=== PATIENT | male | born 1970 | race Caucasian/White ===

== ENCOUNTER 2017-10-10 03:54 | Emergency (ER) | payer SELFPAY ==
[~2017-10-10] VITALS: Ht 185.4 cm; Wt 65.0 kg
[~2017-10-10 03:54] MED LIST: ZOFR4TAB3 SL
[2017-10-10 04:07] VITALS: BP 124/91; PULSE 93; RESP 20; TEMP 97.6; O2SAT 100
--- NOTE | 2017-10-10 04:18 | PD ---
HPI Chief Complaint: Alcohol/Drug Intoxication Time Seen by Provider: 04:10 Travel History International Travel<30 days: No Contact w/Intl Traveler<30days: No Traveled to known affect area: No History of Present Illness HPI 46-year-old male with history of alcoholism, went to [facility] this morning telling them that he was sleeping in the [facility] and was trying to find a place to stay, however they have no beds, so [facility] was called and the patient was transported here. The patient drinks beer daily and states that his last beverage was about 4 hours prior at around midnight. He denies illicit drug use. His only complaint is that he feels as though he is going to have a seizure because of withdrawals. [facility] Past Medical History Cardiovascular Problems: Yes (Orthostatic vitals) Diminished Hearing: No Hypertension: Yes (Orthostatic vitals ) Seizures: Yes ("when I withdraw from alcohol") Past Surgical History Eye Surgery: Yes (right cataract) Social History Alcohol Use: Yes (12 beers daily; last beer @midnight ) Tobacco Use: Yes (1 PPD) Substance Use: No (denies) Allergies-Medications (Allergen,Severity, Reaction): Coded Allergies: meperidine (Verified Allergy, Severe, VOMITING, 10/10/17) Reported Meds & Prescriptions Reported Meds & Active Scripts Active No Active Prescriptions or Reported Medications Review of Systems Except as stated in HPI: all other systems reviewed are Neg Physical Exam Narrative GENERAL: Well-developed, well-nourished, no apparent distress. SKIN: Focused skin assessment warm/dry. HEAD: Atraumatic. Normocephalic. EYES: Pupils equal and round. No scleral icterus. No injection or drainage. ENT: Mucous membranes pink and moist. NECK: Trachea midline. No JVD. CARDIOVASCULAR: Regular rate and rhythm. No murmur appreciated. RESPIRATORY: No accessory muscle use. Clear to auscultation. Breath sounds equal bilaterally. GASTROINTESTINAL: Abdomen soft, non-tender, nondistended. MUSCULOSKELETAL: No obvious deformities. No clubbing. No cyanosis. No edema. NEUROLOGICAL: Awake and alert. No obvious cranial nerve deficits. Motor grossly within normal limits. Normal speech. PSYCHIATRIC: Appropriate mood and affect; insight and judgment normal. Data Data Last Documented VS Vital Signs Date Time Temp Pulse Resp B/P (MAP) Pulse Ox O2 Delivery O2 Flow Rate FiO2 10/10/17 04:07 97.6 93 20 124/91 (102) 100 Room Air Orders Orders Complete Blood Count With Diff (10/10/17 04:34) Comprehensive Metabolic Panel (10/10/17 04:34) Iv Access Insert/Monitor (10/10/17 04:34) Ecg Monitoring (10/10/17 04:34) Oximetry (10/10/17 04:34) Sodium Chlor 0.9% 1000 Ml Inj (Ns 1000 M (10/10/17 04:34) Sodium Chloride 0.9% Flush (Ns Flush) (10/10/17 04:45) Alcohol (Ethanol) (10/10/17 04:34) Labs Laboratory Tests Test 10/10/17 04:15 White Blood Count 6.0 TH/MM3 Red Blood Count 4.34 MIL/MM3 Hemoglobin 14.6 GM/DL Hematocrit 42.5 % Mean Corpuscular Volume 97.8 FL Mean Corpuscular Hemoglobin 33.6 PG Mean Corpuscular Hemoglobin Concent 34.4 % Red Cell Distribution Width 15.0 % Platelet Count 204 TH/MM3 Mean Platelet Volume 7.4 FL Neutrophils (%) (Auto) 57.6 % Lymphocytes (%) (Auto) 28.3 % Monocytes (%) (Auto) 12.7 % Eosinophils (%) (Auto) 0.8 % Basophils (%) (Auto) 0.6 % Neutrophils # (Auto) 3.4 TH/MM3 Lymphocytes # (Auto) 1.7 TH/MM3 Monocytes # (Auto) 0.8 TH/MM3 Eosinophils # (Auto) 0.0 TH/MM3 Basophils # (Auto) 0.0 TH/MM3 CBC Comment DIFF FINAL Differential Comment Blood Urea Nitrogen 5 MG/DL Creatinine 0.60 MG/DL Random Glucose 85 MG/DL Total Protein 7.4 GM/DL Albumin 3.5 GM/DL Calcium Level 8.6 MG/DL Alkaline Phosphatase 74 U/L Aspartate Amino Transf (AST/SGOT) 58 U/L Alanine Aminotransferase (ALT/SGPT) 28 U/L Total Bilirubin 0.4 MG/DL Sodium Level 137 MEQ/L Potassium Level 4.2 MEQ/L Chloride Level 102 MEQ/L Carbon Dioxide Level 27.6 MEQ/L Anion Gap 7 MEQ/L Estimat Glomerular Filtration Rate 145 ML/MIN Ethyl Alcohol Level 226 MG/DL [facility] Medical Decision Making Medical Screen Exam Complete: Yes Emergency Medical Condition: Yes Medical Record Reviewed: Yes Differential Diagnosis Alcohol intoxication, drug intoxication, metabolic abnormality, alcohol withdrawal Narrative Course Vital signs reviewed and are within normal limits. CBC is unremarkable. CMP is unremarkable. Alcohol level is 226. The patient will be allowed to sleep off his intoxication in the emergency department and discharged when clinically sober. Diagnosis Primary Impression: Alcohol intoxication Qualified Codes: F10.920 - Alcohol use, unspecified with intoxication, uncomplicated Referrals: [facility] Additional Instructions: Follow-up with [facility] Scripts No Active Prescriptions or Reported Meds Disposition: 01 DISCHARGE HOME Condition: Stable Mitchell Oconnor MD Oct 10, 2017 04:18
[2017-10-10] MEDS ORDERED: SODIUM CHLOR 0.9% 1000 ML INJ 1,000 ML IV SCH (04:34)
[2017-10-10] MEDS ORDERED: SODIUM CHLORIDE 0.9% FLUSH 10 ML FLUSH IV FLUSH PRN (04:45)
[2017-10-10 04:53] LABS: AUTOMATED NEUTROPHIL # 3.4 TH/MM3 (1.8-7.7); BASOPHIL % 0.6 % (0.0-2.0); EOSINOPHIL % 0.8 % (0.0-4.0); HEMATOCRIT 42.5 % (39.0-51.0); HEMOGLOBIN 14.6 GM/DL (13.0-17.0); LYMPH % 28.3 % (9.0-44.0); LYMPHOCYTE # 1.7 TH/MM3 (1.0-4.8); MEAN CELL VOLUME 97.8 FL (80.0-100.0); MEAN CORPUSCULAR HEMOGLOBIN 33.6 PG (27.0-34.0); MEAN CORPUSCULAR HGB CONC 34.4 % (32.0-36.0); MEAN PLATELET VOLUME 7.4 FL (7.0-11.0); MONO % 12.7 % (0.0-8.0); MONOCYTE # 0.8 TH/MM3 (0-0.9); NEUT % 57.6 % (16.0-70.0); PLATELET COUNT 204 TH/MM3 (150-450); RED BLOOD COUNT 4.34 MIL/MM3 (4.50-5.90)
[2017-10-10 05:14] LABS: ALBUMIN 3.5 GM/DL (3.4-5.0); ALT (GPT) 28 U/L (12-78); AST (GOT) 58 U/L (15-37); BICARBONATE 27.6 MEQ/L (21.0-32.0); BLOOD UREA NITROGEN 5 MG/DL (7-18); CALCIUM 8.6 MG/DL (8.5-10.1); CHLORIDE 102 MEQ/L (98-107); GLOMERULAR FILTRATION RATE 145 ML/MIN (>89); GLUCOSE,RANDOM 85 MG/DL (74-106); SODIUM (NA) 137 MEQ/L (136-145)
[2017-10-10 05:16] LABS: ALKALINE PHOSPHATASE 74 U/L (45-117); TOTAL BILIRUBIN ADULT 0.4 MG/DL (0.2-1.0); TOTAL PROTEIN 7.4 GM/DL (6.4-8.2)
== END 2017-10-10 10:24 | disposition home or self-care (01) ==
LOC: NEPC 03:54
DX: F10.229 Alcohol dependence with intoxication, unspecified (principal); F17.200 Nicotine dependence, unspecified, uncomplicated; Y90.7 Blood alcohol level of 200-239 mg/100 ml
CPT/HCPCS: 80053; 80307; 85025; 96360; 96361; 99284; J7030

== ENCOUNTER 2017-11-08 20:44 | Observation (INO) | payer SELFPAY ==
[~2017-11-08] VITALS: Ht 175.3 cm; Wt 59.0 kg
[2017-11-08 20:51] VITALS: BP 135/87; PULSE 101; RESP 18; TEMP 98.6; O2SAT 97
[2017-11-08] MEDS ORDERED: SODIUM CHLOR 0.9% 1000 ML INJ 1,000 ML IV SCH (20:55)
[2017-11-08] MEDS ORDERED: SODIUM CHLORIDE 0.9% FLUSH 10 ML FLUSH IVF PRN (21:00)
[2017-11-08] MEDS ORDERED: MORPHINE SULFATE 4 MG/ML INJ IV PUSH ONE (21:00)
[2017-11-08] MEDS ORDERED: PANTOPRAZOLE SODIUM 40 MG VIAL IVP ONE (21:00)
[2017-11-08] MEDS ORDERED: ONDANSETRON HCL 4 MG/2 ML VIAL IVP ONE (21:00)
--- NOTE | 2017-11-08 21:44 | PD ---
HPI Chief Complaint: Chest Pain Time Seen by Provider: 20:51 Travel History International Travel<30 days: No Contact w/Intl Traveler<30days: No Traveled to known affect area: No History of Present Illness HPI Patient is a 46-year-old male presenting to the emergency room for evaluation of chest pain. Patient states his pain is midsternal radiates to the left upper quadrant of his abdomen. Patient states the pain started several months ago, it is constant in nature. He reports his pain is a 10 out of 10. He reports nausea, occasional vomiting and diarrhea. He states he has 2-3 soft stools daily. He states he feels sweaty when the pain gets worse. He reports that he drinks a significant amount of alcohol on daily basis, greater than a 12 pack of beer. He denies any illicit drug use but endorses tobacco use. Symptom onset was gradual, symptoms are moderate in nature. There are no alleviating factors. PFSH Past Medical History Cardiovascular Problems: Yes GERD: Yes Hypertension: Yes (Orthostatic vitals ) Immunizations Current: Yes Seizures: Yes ("when I withdraw from alcohol") Tetanus Vaccination: < 5 Years Influenza Vaccination: No Past Surgical History Eye Surgery: Yes (right cataract) Social History Alcohol Use: Yes (12 beers daily) Tobacco Use: Yes (1 PPD) Substance Use: No (denies) Allergies-Medications (Allergen,Severity, Reaction): Coded Allergies: meperidine (Verified Allergy, Severe, VOMITING, 11/08/17) Reported Meds & Prescriptions Reported Meds & Active Scripts Active No Active Prescriptions or Reported Medications Review of Systems Except as stated in HPI: all other systems reviewed are Neg General / Constitutional: No: Fever Eyes: No: Blurred Vision HENT: No: Headaches Cardiovascular: Positive: Chest Pain or Discomfort, Diaphoresis Gastrointestinal: Positive: Nausea, Vomiting, Diarrhea, Abdominal Pain Physical Exam Narrative GENERAL: Well-developed, well-nourished, alert male. Presenting in no acute distress. SKIN: Warm and dry. HEAD: Atraumatic. Normocephalic. EYES: Pupils equal and round. No scleral icterus. No injection or drainage. ENT: No nasal bleeding or discharge. Mucous membranes pink and moist. NECK: Trachea midline. No JVD. CARDIOVASCULAR: Regular rate and rhythm. RESPIRATORY: No accessory muscle use. Clear to auscultation. Breath sounds equal bilaterally. GASTROINTESTINAL: Abdomen soft, tender to palpation in left upper quadrant epigastric region, nondistended. Hepatic and splenic margins not palpable. Positive bowel sounds, positive guarding, no rebound. MUSCULOSKELETAL: Extremities without clubbing, cyanosis, or edema. No obvious deformities. NEUROLOGICAL: Awake and alert. No obvious cranial nerve deficits. Motor grossly within normal limits. Five out of 5 muscle strength in the arms and legs. Normal speech. PSYCHIATRIC: Appropriate mood and affect; insight and judgment normal. Data Data Last Documented VS Vital Signs Date Time Temp Pulse Resp B/P (MAP) Pulse Ox O2 Delivery O2 Flow Rate FiO2 11/08/17 22:32 16 11/08/17 20:51 98.6 101 135/87 (103) 97 Orders Orders Electrocardiogram (11/08/17 20:55) Ckmb (Isoenzyme) Profile (11/08/17 20:55) Complete Blood Count With Diff (11/08/17 20:55) Comprehensive Metabolic Panel (11/08/17 20:55) Magnesium (Mg) (11/08/17 20:55) Prothrombin Time / Inr (Pt) (11/08/17 20:55) Act Partial Throm Time (Ptt) (11/08/17 20:55) Troponin I (11/08/17 20:55) Lipase (11/08/17 20:55) Chest, Single Ap (11/08/17 20:55) Ecg Monitoring (11/08/17 20:55) Bilateral Bp Monitoring (11/08/17 20:55) Iv Access Insert/Monitor (11/08/17 20:55) Oximetry (11/08/17 20:55) Oxygen Administration (11/08/17 20:55) Sodium Chloride 0.9% Flush (Ns Flush) (11/08/17 21:00) Morphine Inj (Morphine Inj) (11/08/17 21:00) Ondansetron Inj (Zofran Inj) (11/08/17 21:00) Pantoprazole Inj (Protonix Inj) (11/08/17 21:00) Sodium Chlor 0.9% 1000 Ml Inj (Ns 1000 M (11/08/17 20:55) CKMB (11/08/17 21:10) CKMB% (11/08/17 21:10) Admit Order (Ed Use Only) (11/08/17 23:26) Labs Laboratory Tests Test 11/08/17 21:10 White Blood Count 5.7 TH/MM3 Red Blood Count 4.07 MIL/MM3 Hemoglobin 13.6 GM/DL Hematocrit 39.9 % Mean Corpuscular Volume 98.2 FL Mean Corpuscular Hemoglobin 33.5 PG Mean Corpuscular Hemoglobin Concent 34.1 % Red Cell Distribution Width 14.4 % Platelet Count 163 TH/MM3 Mean Platelet Volume 7.2 FL Neutrophils (%) (Auto) 55.4 % Lymphocytes (%) (Auto) 36.0 % Monocytes (%) (Auto) 7.5 % Eosinophils (%) (Auto) 0.5 % Basophils (%) (Auto) 0.6 % Neutrophils # (Auto) 3.2 TH/MM3 Lymphocytes # (Auto) 2.1 TH/MM3 Monocytes # (Auto) 0.4 TH/MM3 Eosinophils # (Auto) 0.0 TH/MM3 Basophils # (Auto) 0.0 TH/MM3 CBC Comment DIFF FINAL Differential Comment Prothrombin Time 10.2 SEC Prothromb Time International Ratio 1.0 RATIO Activated Partial Thromboplast Time 26.1 SEC Blood Urea Nitrogen 7 MG/DL Creatinine 0.80 MG/DL Random Glucose 181 MG/DL Total Protein 7.3 GM/DL Albumin 3.2 GM/DL Calcium Level 8.1 MG/DL Magnesium Level 1.9 MG/DL Alkaline Phosphatase 74 U/L Aspartate Amino Transf (AST/SGOT) 94 U/L Alanine Aminotransferase (ALT/SGPT) 45 U/L Total Bilirubin 0.3 MG/DL Sodium Level 137 MEQ/L Potassium Level 3.8 MEQ/L Chloride Level 102 MEQ/L Carbon Dioxide Level 24.4 MEQ/L Anion Gap 11 MEQ/L Estimat Glomerular Filtration Rate 104 ML/MIN Total Creatine Kinase 222 U/L Creatine Kinase MB 3.2 NG/ML Troponin I LESS THAN 0.02 NG/ML Lipase 307 U/L MDM Medical Decision Making Medical Screen Exam Complete: Yes Emergency Medical Condition: Yes Interpretation(s) Vital Signs Date Time Temp Pulse Resp B/P (MAP) Pulse Ox O2 Delivery O2 Flow Rate FiO2 11/08/17 22:32 16 11/08/17 20:51 98.6 101 18 135/87 (103) 97 Last Impressions Chest X-Ray 11/08/172054 Signed Impressions: Service Date/Time: Wednesday, November 08, 2017 21:14 - CONCLUSION: No acute disease. James Hinds MD Laboratory Tests Test 11/08/17 21:10 White Blood Count 5.7 TH/MM3 Red Blood Count 4.07 MIL/MM3 Hemoglobin 13.6 GM/DL Hematocrit 39.9 % Mean Corpuscular Volume 98.2 FL Mean Corpuscular Hemoglobin 33.5 PG Mean Corpuscular Hemoglobin Concent 34.1 % Red Cell Distribution Width 14.4 % Platelet Count 163 TH/MM3 Mean Platelet Volume 7.2 FL Neutrophils (%) (Auto) 55.4 % Lymphocytes (%) (Auto) 36.0 % Monocytes (%) (Auto) 7.5 % Eosinophils (%) (Auto) 0.5 % Basophils (%) (Auto) 0.6 % Neutrophils # (Auto) 3.2 TH/MM3 Lymphocytes # (Auto) 2.1 TH/MM3 Monocytes # (Auto) 0.4 TH/MM3 Eosinophils # (Auto) 0.0 TH/MM3 Basophils # (Auto) 0.0 TH/MM3 CBC Comment DIFF FINAL Differential Comment Prothrombin Time 10.2 SEC Prothromb Time International Ratio 1.0 RATIO Activated Partial Thromboplast Time 26.1 SEC Blood Urea Nitrogen 7 MG/DL Creatinine 0.80 MG/DL Random Glucose 181 MG/DL Total Protein 7.3 GM/DL Albumin 3.2 GM/DL Calcium Level 8.1 MG/DL Magnesium Level 1.9 MG/DL Alkaline Phosphatase 74 U/L Aspartate Amino Transf (AST/SGOT) 94 U/L Alanine Aminotransferase (ALT/SGPT) 45 U/L Total Bilirubin 0.3 MG/DL Sodium Level 137 MEQ/L Potassium Level 3.8 MEQ/L Chloride Level 102 MEQ/L Carbon Dioxide Level 24.4 MEQ/L Anion Gap 11 MEQ/L Estimat Glomerular Filtration Rate 104 ML/MIN Total Creatine Kinase 222 U/L Creatine Kinase MB 3.2 NG/ML Troponin I LESS THAN 0.02 NG/ML Lipase 307 U/L Differential Diagnosis ACS versus USA versus pancreatitis versus gastritis versus other Narrative Course Patient is a 46-year-old male presented to the emergency department for evaluation of chest pain. On exam he was tender in the left upper quadrant, he also reports an extensive history of alcohol abuse. Physical exam initially appears more consistent with possible gastritis/pancreatitis, labs and imaging ordered and pending. Initial EKG shows sinus tachycardia with a rate of 100, this was reviewed by my attending physician. Patient was given morphine and Zofran as well as IV fluids, and Protonix. Patient is resting comfortably, labs reviewed, no acute findings identified. Patient was then placed in the chest pain center however due to alcohol dependence, he will be admitted to medicine. Patient agreeable, plan of care was discussed with my attending physician and patient admission accepted by Dr. Helton. Admit orders placed. Diagnosis Primary Impression: Chest pain Qualified Codes: R07.9 - Chest pain, unspecified Additional Impression: Alcohol abuse Admitting Information Admitting Physician Requests: Observation Scripts No Active Prescriptions or Reported Meds Condition: Stable Theresa Deshpande [facility] Nov 08, 2017 21:44
[2017-11-08 21:54] LABS: AUTOMATED NEUTROPHIL # 3.2 TH/MM3 (1.8-7.7); BASOPHIL % 0.6 % (0.0-2.0); EOSINOPHIL % 0.5 % (0.0-4.0); HEMATOCRIT 39.9 % (39.0-51.0); HEMOGLOBIN 13.6 GM/DL (13.0-17.0); LYMPHOCYTE # 2.1 TH/MM3 (1.0-4.8); MEAN CELL VOLUME 98.2 FL (80.0-100.0); MEAN CORPUSCULAR HEMOGLOBIN 33.5 PG (27.0-34.0); MEAN CORPUSCULAR HGB CONC 34.1 % (32.0-36.0); MEAN PLATELET VOLUME 7.2 FL (7.0-11.0); MONO % 7.5 % (0.0-8.0); MONOCYTE # 0.4 TH/MM3 (0-0.9); NEUT % 55.4 % (16.0-70.0); PLATELET COUNT 163 TH/MM3 (150-450); RED BLOOD COUNT 4.07 MIL/MM3 (4.50-5.90); RED CELL DISTRIBUTION WIDTH 14.4 % (11.6-17.2); WHITE BLOOD COUNT 5.7 TH/MM3 (4.0-11.0)
--- NOTE | 2017-11-08 21:54 | RADRPT ---
EXAM DATE/TIME: 11/08/2017 21:14 [facility] COMPARISON: No previous studies available for comparison. INDICATIONS : Chest pain. MEDICAL HISTORY : Hypertension. SURGICAL HISTORY : None. ENCOUNTER: Subsequent ACUITY: 2 weeks PAIN SCORE: 6/10 LOCATION: Bilateral chest FINDINGS: A single view of the chest demonstrates the lungs to be symmetrically aerated without evidence of mas s, infiltrate or effusion. The cardiomediastinal contours are unremarkable. Osseous structures are intact. CONCLUSION: No acute disease. James Hinds MD on November 08, 2017 at 21:51 Board Certified Radiologist. This report was verified electronically.
[2017-11-08 22:07] LABS: ALBUMIN 3.2 GM/DL (3.4-5.0); AST (GOT) 94 U/L (15-37); BICARBONATE 24.4 MEQ/L (21.0-32.0); BLOOD UREA NITROGEN 7 MG/DL (7-18); CALCIUM 8.1 MG/DL (8.5-10.1); CHLORIDE 102 MEQ/L (98-107); GLOMERULAR FILTRATION RATE 104 ML/MIN (>89); GLUCOSE,RANDOM 181 MG/DL (74-106); MAGNESIUM 1.9 MG/DL (1.5-2.5); SODIUM (NA) 137 MEQ/L (136-145)
[2017-11-08 22:08] LABS: ALT (GPT) 45 U/L (12-78)
[2017-11-08 22:15] LABS: PROTHROMBIN TIME - PATIENT 10.2 SEC (9.8-11.6)
[2017-11-08 22:20] LABS: ALKALINE PHOSPHATASE 74 U/L (45-117); TOTAL BILIRUBIN ADULT 0.3 MG/DL (0.2-1.0); TOTAL PROTEIN 7.3 GM/DL (6.4-8.2); TROPONIN I LESS THAN 0.02 NG/ML (0.02-0.05)
[2017-11-09] VITALS (7 sets, daily range): BP systolic 109–144; BP diastolic 78–86; PULSE 73–90; RESP 15–20; TEMP 98.2–98.9; O2SAT 94–97
[2017-11-09] MEDS ORDERED: MORPHINE SULFATE 4 MG/ML INJ IV PUSH PRN (01:00)
[2017-11-09] MEDS ORDERED: SODIUM CHLORIDE 0.9% FLUSH 10 ML FLUSH IV FLUSH PRN (01:00)
[2017-11-09] MEDS ORDERED: FLUMAZENIL 0.5 MG/5 ML VIAL IV PUSH PRN (01:00)
[2017-11-09] MEDS ORDERED: LORazepam 1 MG TAB PO PRN (01:00)
[2017-11-09] MEDS ORDERED: ACETAMINOPHEN 500 MG CPLT PO PRN (01:00)
[2017-11-09] MEDS ORDERED: NITROGLYCERIN 0.4 MG SL 25 TABS/BTL SL PRN (01:00)
[2017-11-09] MEDS ORDERED: LORazepam 2 MG TAB PO PRN (01:00)
[2017-11-09] MEDS ORDERED: ACETAMINOPHEN/HYDROcodone 325 MG/7.5 MG TAB PO PRN (01:00)
[2017-11-09] MEDS ORDERED: LORazepam 2 MG/ML VIAL IV PUSH PRN ×3 (01:00)
[2017-11-09] MEDS: LORazepam 2 MG/ML VIAL IV PUSH PRN ×2 (01:49→11:51)
[2017-11-09] MEDS ORDERED: SODIUM CHLOR 0.9% 1000 ML INJ 1,000 ML IV SCH (04:15)
--- NOTE | 2017-11-09 04:18 | HHI.HP ---
[facility] No Primary Care Physician Admission Diagnosis CHEST PAIN, ALCOHOLISM Diagnoses: Travel History International Travel<30 Days: No Contact w/Intl Traveler <30 Da: No Traveled to Known Affected Are: No History of Present Illness 46-year-old male with a past medical history significant for alcohol abuse presents to the emergency department for evaluation of chest pain. At the time of my examination, the patient will not awaken from sleep. With deep sternal rub, he will open his eyes however rapidly falls back to sleep. Per ED documentation the patient states that his chest pain is substernal and radiates to the left upper quadrant of his abdomen. He states that it started several months ago and is constant in nature. He reports occasional nausea, vomiting and diarrhea. The patient reports drinking more than a 12 pack appear daily. Review of Systems Unable to obtain secondary to clinical condition Past Family Social History Past Medical History Unable to obtain Past Surgical History Unable to obtain Reported Medications Reported Meds & Active Scripts Active No Active Prescriptions or Reported Medications Allergies: Coded Allergies: meperidine (Verified Allergy, Severe, VOMITING, 11/08/17) Family History Unable to obtain Social History Per ER documentation, the patient drinks more than 12 pack of beer daily. He denies illicit drug use. Positive tobacco. Physical Exam Vital Signs Vital Signs Date Time Temp Pulse Resp B/P (MAP) Pulse Ox O2 Delivery O2 Flow Rate FiO2 11/09/17 01:14 90 17 129/83 (98) 95 Room Air 11/08/17 22:32 16 11/08/17 20:51 98.6 101 18 135/87 (103) 97 Physical Exam GENERAL: Disheveled, male lying in bed, snoring SKIN: No rashes, ecchymoses or lesions. Cool and dry. HEAD: Atraumatic. Normocephalic. No temporal or scalp tenderness. EYES: Pupils equal round and reactive. Extraocular motions intact. No scleral icterus. No injection or drainage. ENT: Nose without bleeding, purulent drainage or septal hematoma. NECK: Trachea midline. No JVD or lymphadenopathy. CARDIOVASCULAR: Regular rate and rhythm without murmurs, gallops, or rubs. RESPIRATORY: Clear to auscultation. Breath sounds equal bilaterally. No wheezes , rales, or rhonchi. GASTROINTESTINAL: Abdomen soft, non-tender, nondistended. No hepato-splenomegaly , or palpable masses. No guarding. MUSCULOSKELETAL: Extremities without clubbing, cyanosis, or edema. No joint tenderness, effusion, or edema noted. No calf tenderness. NEUROLOGICAL: Sleeping. Unable to assess strength and orientation. Patient arouses to sternal rub. Laboratory Laboratory Tests Test 11/08/17 21:10 11/09/17 03:49 White Blood Count 5.7 Red Blood Count 4.07 Hemoglobin 13.6 Hematocrit 39.9 Mean Corpuscular Volume 98.2 Mean Corpuscular Hemoglobin 33.5 Mean Corpuscular Hemoglobin Concent 34.1 Red Cell Distribution Width 14.4 Platelet Count 163 Mean Platelet Volume 7.2 Neutrophils (%) (Auto) 55.4 Lymphocytes (%) (Auto) 36.0 Monocytes (%) (Auto) 7.5 Eosinophils (%) (Auto) 0.5 Basophils (%) (Auto) 0.6 Neutrophils # (Auto) 3.2 Lymphocytes # (Auto) 2.1 Monocytes # (Auto) 0.4 Eosinophils # (Auto) 0.0 Basophils # (Auto) 0.0 CBC Comment DIFF FINAL Differential Comment Prothrombin Time 10.2 Prothromb Time International Ratio 1.0 Activated Partial Thromboplast Time 26.1 Blood Urea Nitrogen 7 Creatinine 0.80 Random Glucose 181 Total Protein 7.3 Albumin 3.2 Calcium Level 8.1 Magnesium Level 1.9 Alkaline Phosphatase 74 Aspartate Amino Transf (AST/SGOT) 94 Alanine Aminotransferase (ALT/SGPT) 45 Total Bilirubin 0.3 Sodium Level 137 Potassium Level 3.8 Chloride Level 102 Carbon Dioxide Level 24.4 Anion Gap 11 Estimat Glomerular Filtration Rate 104 Total Creatine Kinase 222 Creatine Kinase MB 3.2 Troponin I LESS THAN 0.02 Lipase 307 Result Diagram: 11/08/17210911/08/172109 Caprini VTE Risk Assessment Caprini VTE Risk Assessment: No/Low Risk (score <= 1) Caprini Risk Assessment Model Point Value = 1 Point Value = 2 Point Value = 3 Point Value = 5 Age 41-60 Minor surgery BMI > 25 kg/m2 Swollen legs Varicose veins or History of unexplained or recurrent spontaneous Oral contraceptives or hormone replacement Sepsis (< 1 month) Serious lung disease, including pneumonia (< 1 month) Abnormal pulmonary function Acute myocardial infarction Congestive heart failure (< 1 month) History of inflammatory bowel disease Medical patient at bed rest Age 61-74 Arthroscopic surgery Major open surgery (> 45 min) Laparoscopic surgery (> 45 min) Malignancy Confined to bed (> 72 hours) Immobilizing plaster cast Central venous access Age >= 75 History of VTE Family history of VTE Factor V Leiden Prothrombin [id number] Lupus anticoagulant Anticardiolipin antibodies Elevated serum homocysteine Heparin-induced thrombocytopenia Other congenital or acquired thrombophilia Stroke (< 1 month) Elective arthroplasty Hip, pelvis, or leg fracture Acute spinal cord injury (< 1 month) Prophylaxis Regimen Total Risk Factor Score Risk Level Prophylaxis Regimen 0-1 Low Early ambulation 2 Moderate Order ONE of the following: *Sequential Compression Device (SCD) *Heparin 5000 units SQ BID 3-4 Higher Order ONE of the following medications: *Heparin 5000 units SQ TID *Enoxaparin/Lovenox 40 mg SQ daily (WT < 150 kg, CrCl > 30 mL/min) *Enoxaparin/Lovenox 30 mg SQ daily (WT < 150 kg, CrCl > 10-29 mL/min) *Enoxaparin/Lovenox 30 mg SQ BID (WT < 150 kg, CrCl > 30 mL/min) AND/OR *Sequential Compression Device (SCD) 5 or more Highest Order ONE of the following medications: *Heparin 5000 units SQ TID (Preferred with Epidurals) *Enoxaparin/Lovenox 40 mg SQ daily (WT < 150 kg, CrCl > 30 mL/min) *Enoxaparin/Lovenox 30 mg SQ daily (WT < 150 kg, CrCl > 10-29 mL/min) *Enoxaparin/Lovenox 30 mg SQ BID (WT < 150 kg, CrCl > 30 mL/min) AND *Sequential Compression Device (SCD) Assessment and Plan Assessment and Plan Assessment/plan: 1. Chest pain EKG showed sinus tachycardia without ST segment elevations or depressions, personally reviewed Initial troponin negative ACS rule out pending; serial troponins/EKGs Aspirin Morphine for pain 2. Alcohol abuse [facility] protocol Rory/folate/multivitamin Monitor for signs of withdrawal FEN Nothing by mouth Electrolytes: Monitor and replete when necessary NS at 75 cc/hr Lore Helton MD Nov 09, 2017 04:18
[2017-11-09 04:33] LABS: TROPONIN I LESS THAN 0.02 NG/ML (0.02-0.05)
[2017-11-09] MEDS ORDERED: SODIUM CHLORIDE 0.9% FLUSH 10 ML FLUSH IV FLUSH SCH (09:00)
[2017-11-09] MEDS ORDERED: THIAMINE HCL 100 MG TAB PO SCH (09:00)
[2017-11-09] MEDS ORDERED: MULTIVITAMINS/MINERALS THERAPEUTIC TAB PO SCH (09:00)
[2017-11-09] MEDS ORDERED: FOLIC ACID 1 MG TAB PO SCH (09:00)
[2017-11-09] MEDS ORDERED: ASPIRIN 325 MG TAB PO SCH (09:00)
[2017-11-09 11:15] LABS: TROPONIN I LESS THAN 0.02 NG/ML (0.02-0.05)
[2017-11-09] MEDS ORDERED: REGADENOSON INJ 0.4 MG/5 ML SYR ONE (14:56)
--- NOTE | 2017-11-09 16:33 | RADRPT ---
EXAM DATE/TIME: 11/09/2017 14:51 [facility] COMPARISON: No previous studies available for comparison. INDICATIONS : Mid chest pain for two months. Angina. DOSE: 25.6 mCi Tc99m Myoview at stress. 8.3 mCi Tc99m Myoview at rest. 0.4 mg Lexiscan STRESS SYMPTOMS: None noted. EJECTION FRACTION: 57% MEDICAL HISTORY : Unobtainable. SURGICAL HISTORY : Unobtainable. ENCOUNTER: Initial ACUITY: 2 months PAIN SCALE: 5/10 LOCATION: Midsternal chest TECHNIQUE: The patient underwent pharmacologic stress with infusion of prescribed dose. Continuous ECG tracing was monitored during stress. Gated SPECT imaging was performed after stress and conventional SPECT i maging was performed at rest. The examination was performed on a SPECT/CT scanner, both attenuation and non-corrected datasets were reviewed. FINDINGS: DISTRIBUTION: The maximum perfused segment at stress is in the lateral wall. PERFUSION STUDY: The pattern of perfusion at stress is within normal limits. GATED STUDY: There is intact wall motion and thickening without hypokinetic or dyskinetic segments. CONCLUSION: No significant reversibility/stress-induced ischemia demonstrated. Normal wall motion . RISK CATEGORY: Low Juan Tolliver MD on November 09, 2017 at 16:30 Board Certified Radiologist. This report was verified electronically.
[2017-11-09] MEDS ORDERED: CHLO25CA9 PO (16:38)
--- NOTE | 2017-11-09 17:02 | EKG ---
Date Performed: 11/08/2017 Time Performed: 20:58:07 PTAGE: 46 years EKG: SINUS TACHYCARDIA Since previous tracing, no significant change noted ABNORMAL RHYTHM ECG PREVIOUS TRACING : 06/23/2015 07.50.58 DOCTOR: Augusto Royal Interpretating Date/Time 11/09/2017 17:02:02
--- NOTE | 2017-11-09 17:04 | EKG ---
Date Performed: 11/09/2017 Time Performed: 01:23:41 PTAGE: 46 years EKG: Sinus rhythm NONSPECIFIC T-WAVE ABNORMALITY Since previous tracing, no significant change noted BORDERLINE ECG PREVIOUS TRACING : 11/08/2017 20.58.07 DOCTOR: Augusto Royal Interpretating Date/Time 11/09/2017 17:03:04
--- NOTE | 2017-11-09 17:05 | EKG ---
Date Performed: 11/09/2017 Time Performed: 07:37:12 PTAGE: 46 years EKG: Sinus rhythm Since previous tracing, no significant change noted NORMAL ECG PREVIOUS TRACING : 11/09/2017 01.23 DOCTOR: Augusto Royal Interpretating Date/Time 11/09/2017 17:03:31
[2017-11-09] MEDS ORDERED: chlordiazePOXIDE 25 MG CAP PO SCH (18:00)
== END 2017-11-09 18:19 | disposition home or self-care (01) ==
LOC: NEPD 20:44 → NEDA 23:27 → NEDH 11-09 03:59 → NEPFCDU 11-09 12:33
PROVIDERS: ADMIT Internal Medicine; ATTEND Internal Medicine
DX: R07.89 Other chest pain (principal); F10.20 Alcohol dependence, uncomplicated; R10.12 Left upper quadrant pain; R11.2 Nausea with vomiting, unspecified; R19.7 Diarrhea, unspecified; K21.9 Gastro-esophageal reflux disease without esophagitis; I10 Essential (primary) hypertension; F17.200 Nicotine dependence, unspecified, uncomplicated; R94.31 Abnormal electrocardiogram [ECG] [EKG]
CPT/HCPCS: 71045; 78452; 80053; 80307; 82550; 82552; 83690; 83735; 84484; 85025; 85610; 85730; 93005; 93017; 96361; 96374; 96375; 96376; 99285; A9502; C9113; G0378; J2060; J2270; J2405; J2785; J7030

== ENCOUNTER 2017-11-22 22:33 | Emergency (ER) | payer SELFPAY ==
[~2017-11-22] VITALS: Ht 165.1 cm; Wt 72.0 kg
[~2017-11-22 22:33] MED LIST changes: +CHLO25CA9 PO; -ZOFR4TAB3 SL
[2017-11-22] MEDS ORDERED: SODIUM CHLORID 0.9% 500 ML INJ 500 ML IV ONE (22:45)
--- NOTE | 2017-11-22 22:55 | PD ---
HPI Chief Complaint: chest pain Time Seen by Provider: 22:35 Travel History International Travel<30 days: No Contact w/Intl Traveler<30days: No History of Present Illness HPI The patient is a 46 year old male who presents to the [facility] emergency department with a history of left upper quadrant abdominal pain that he reports has been going on for "a while". When asked to clarify more detail he reports that the pain is been present for the last few months. He reports that the pain is intermittently dull and sharp. He reports that drinking alcohol makes it worse. The patient is a daily alcohol drinker of 3 4 packs of beer per day. He reports that he has had nausea and vomiting for the last few months usually 1-2 times per day. He reports that he has had diarrhea for the last few months usually 3-4 times per day. He denies having any blood in his emesis or blood in his stool. The patient reports that the pain is also present in the left side of his chest. The patient was last seen in the emergency department for chest pain and admitted on November 09. The patient had a stress test done at that time that showed no significant reversibility/stress-induced ischemia. On review of systems otherwise, the patient denies having any known recent fevers, worsening cough or congestion, neck pain, shortness of breath, urinary symptoms , or neurologic symptoms. [facility] Past Medical History Narrative Medical The patient's past medical history is significant for hypertension, withdrawal related seizures, alcohol abuse, hepatitis C, pancreatitis. Asthma: No Blood Disorders: No Anxiety: Yes Depression: Yes Heart Rhythm Problems: Yes (PALPITATIONS) Cancer: No Cardiovascular Problems: Yes (ORTHOSTATIC HYPOTENSION/HYPERTENSION) High Cholesterol: No Chemotherapy: No Chest Pain: Yes (CURRENTLY) Congestive Heart Failure: No COPD: No Diabetes: No Endocrine: No GERD: Yes Genitourinary: No Hypertension: Yes (Orthostatic vitals ) Immune Disorder: No Musculoskeletal: No Neurologic: Yes (TREMORS) Psychiatric: Yes Reproductive: No Respiratory: Yes (HAS HAD BRONCHITIS) Immunizations Current: Yes Radiation Therapy: No Seizures: Yes ("when I withdraw from alcohol") Sleep Apnea: No Thyroid Disease: No Past Surgical History Narrative Surgical The patient's past surgical history is significant for left hand surgery, right eye cataract surgery. Eye Surgery: Yes (right cataract) Social History Alcohol Use: Yes (12 beers daily) Tobacco Use: Yes (2-3 packs of cigarettes per day) Substance Use: No Allergies-Medications (Allergen,Severity, Reaction): Coded Allergies: meperidine (Verified Allergy, Severe, VOMITING, 11/22/17) Reported Meds & Prescriptions Reported Meds & Active Scripts Active Ranitidine (Ranitidine HCl) 150 Mg Tab 150 Mg PO BID Review of Systems Except as stated in HPI: all other systems reviewed are Neg General / Constitutional: No: Fever Eyes: No: Visual changes HENT: No: Headaches, Congestion Cardiovascular: Positive: Chest Pain or Discomfort, No: Dyspnea on exertion Respiratory: Positive: Cough, No: Shortness of Breath Gastrointestinal: Positive: Nausea, Vomiting, Diarrhea, Abdominal Pain, Indigestion, No: Hematemesis, Hematochezia, Loss of Appetite Genitourinary: No: Dysuria Musculoskeletal: No: Pain Skin: No Rash Neurologic: No: Weakness, Focal Abnormalities, Change in Mentation, Slurred Speech, Sensory Disturbance Psychiatric: No: Depression Endocrine: No: Polydipsia Hematologic/Lymphatic: No: Easy Bruising Physical Exam Narrative General: The patient is a well-developed well-nourished male in no acute distress. Head and Neck exam: Head is normocephalic atraumatic. Eyes: EOMI, pupils are equal round and reactive to light. Nose: Midline septum with pink mucous membranes Mouth: Dentition unremarkable. Moist mucus membranes. Posterior oropharynx is not erythematous. No tonsillar hypertrophy. Uvula midline. Airway patent. Neck: No palpable lymphadenopathy. No nuchal rigidity. No thyromegaly. Cardiovascular: Regular rate and rhythm without murmurs, gallops, or rubs. No pulse deficit to the extremities on simultaneous auscultation and palpation of his radial artery. Lungs: Clear to auscultation bilaterally. No wheezes, rhonchi, or rales. Abdomen: Soft, with tenderness reported on palpation of the left upper quadrant of the abdomen, no other tenderness on palpation of the other quadrants of the abdomen. Normal bowel sounds are audible. No tenderness on palpation of McBurney's point. No guarding, rebound, or rigidity. Negative Temple sign. Extremities: No clubbing, cyanosis, or edema. 2+ pulses in all 4 extremities. No calf tenderness on palpation. Back: No spinous process tenderness to palpation. No costovertebral angle tenderness to palpation. Neurologic Exam: Grossly nonfocal. Mildly tremulous on examination without any evidence of asterixis Skin Exam: No rash noted. Intact skin that is warm and dry. Data Data Last Documented VS Vital Signs Date Time Temp Pulse Resp B/P (MAP) Pulse Ox O2 Delivery O2 Flow Rate FiO2 11/22/17 23:02 18 11/22/17 23:01 98.1 89 136/87 (103) 97 Orders Orders Electrocardiogram (11/22/17 22:42) Complete Blood Count With Diff (11/22/17 22:42) Comprehensive Metabolic Panel (11/22/17 22:42) Creatine Kinase (Cpk) (11/22/17 22:42) Ckmb (Isoenzyme) Profile (11/22/17 22:42) Troponin I (11/22/17 22:42) Lipase (11/22/17 22:42) Urinalysis - C+S If Indicated (11/22/17 22:42) Magnesium (Mg) (11/22/17 22:42) Chest, Single Ap (11/22/17 22:42) Iv Access Insert/Monitor (11/22/17 22:42) Ecg Monitoring (11/22/17 22:42) Oximetry (11/22/17 22:42) Sodium Chlorid 0.9% 500 Ml Inj (Ns 500 M (11/22/17 22:45) Ondansetron Inj (Zofran Inj) (11/22/17 23:00) Thiamine Inj (Thiamine Inj) (11/23/17 00:00) CKMB (11/22/17 23:00) CKMB% (11/22/17 23:00) Ct Abd/Pel W Iv Contrast(Rout) (11/23/17 00:05) Chlordiazepoxide (Librium) (11/23/17 01:00) Ed Discharge Order (11/23/17 01:44) Labs Laboratory Tests Test 11/22/17 23:00 White Blood Count 5.9 TH/MM3 Red Blood Count 4.18 MIL/MM3 Hemoglobin 14.1 GM/DL Hematocrit 40.8 % Mean Corpuscular Volume 97.6 FL Mean Corpuscular Hemoglobin 33.7 PG Mean Corpuscular Hemoglobin Concent 34.5 % Red Cell Distribution Width 14.0 % Platelet Count 188 TH/MM3 Mean Platelet Volume 7.3 FL Neutrophils (%) (Auto) 44.0 % Lymphocytes (%) (Auto) 39.9 % Monocytes (%) (Auto) 10.0 % Eosinophils (%) (Auto) 4.7 % Basophils (%) (Auto) 1.4 % Neutrophils # (Auto) 2.6 TH/MM3 Lymphocytes # (Auto) 2.3 TH/MM3 Monocytes # (Auto) 0.6 TH/MM3 Eosinophils # (Auto) 0.3 TH/MM3 Basophils # (Auto) 0.1 TH/MM3 CBC Comment DIFF FINAL Differential Comment Urine Color LIGHT-YELLOW Urine Turbidity CLEAR Urine pH 5.5 Urine Specific [place] 1.002 Urine Protein NEG mg/dL Urine Glucose (UA) NEG mg/dL Urine Ketones NEG mg/dL Urine Occult Blood NEG Urine Nitrite NEG Urine Bilirubin NEG Urine Urobilinogen LESS THAN 2.0 MG/DL Urine Leukocyte Esterase NEG Urine Bacteria RARE /hpf Microscopic Urinalysis Comment CULT NOT INDICATED Blood Urea Nitrogen 3 MG/DL Creatinine 0.60 MG/DL Random Glucose 85 MG/DL Total Protein 7.0 GM/DL Albumin 3.2 GM/DL Calcium Level 8.0 MG/DL Magnesium Level 1.8 MG/DL Alkaline Phosphatase 79 U/L Aspartate Amino Transf (AST/SGOT) 89 U/L Alanine Aminotransferase (ALT/SGPT) 42 U/L Total Bilirubin 0.2 MG/DL Sodium Level 140 MEQ/L Potassium Level 3.6 MEQ/L Chloride Level 105 MEQ/L Carbon Dioxide Level 26.9 MEQ/L Anion Gap 8 MEQ/L Estimat Glomerular Filtration Rate 145 ML/MIN Total Creatine Kinase 261 U/L Creatine Kinase MB 2.5 NG/ML Troponin I LESS THAN 0.02 NG/ML Lipase 293 U/L [facility] Medical Decision Making Medical Screen Exam Complete: Yes Emergency Medical Condition: Yes Medical Record Reviewed: Yes Interpretation(s) Last Impressions Abdomen/Pelvis CT 11/23/17 0005 Signed Impressions: Service Date/Time: Thursday, November 23, 2017 00:21 - CONCLUSION: 1. No obstruction, inflammatory changes or other acute abnormalities demonstrated in the abdomen or pelvis. 2. Mild fatty infiltration of the liver. 3. Cysts and/ or tiny hypodensities of the kidneys unchanged. 4. Trace atelectasis of the visualized lung bases. Juan Tolliver MD Chest X-Ray 11/22/17 2242 Signed Impressions: Service Date/Time: Wednesday, November 22, 2017 23:20 - CONCLUSION: No evidence of acute cardiopulmonary disease. Juan Tolliver MD Differential Diagnosis Acute coronary syndrome, versus pancreatitis, versus alcohol-related gastritis, versus esophagitis, versus malingering Narrative Course During the course of the patient's emergency department visit, the patient's history, examination, and differential diagnosis were reviewed with the patient. The patient was placed on a satellite project site monitor with oximetry and frequent blood pressure monitoring. The patient had IV access obtained and blood work sent for analysis. The patient had an EKG done on arrival. The patient's EKG reveals sinus rhythm heart rate of 91, QRS duration is 87 ms, QTC 405 ms. The patient was initially provided Zofran 4 mg IV, normal saline at 500 mL bolus , thiamine 100 mg IV, and Librium 50 mg p.o. 1. The patient's studies were reviewed and remarkable for A white count of 5.9, hemoglobin 14.1, platelets 188 with 10 monocytes. CMP is remarkable for BUN of 3, calcium 8.0, magnesium 1.8, AST 89, cardiac enzymes within normal limits, lipase within normal limits at 293. Urinalysis is unremarkable. A chest x-ray reveals no evidence of acute cardiopulmonary disease. CT scan of the abdomen and pelvis shows no obstruction, inflammatory changes, or other acute abnormalities demonstrated in this abdominal and pelvis CT. Mild fatty infiltration of the liver, cysts and/or tiny hypodensities of the kidneys that are unchanged compared to previously. Trace atelectasis of the visualized lung bases. Earlier in the month the patient underwent stress testing which showed no evidence of cardiac ischemia. I suspect that the patient's symptoms are related to alcohol gastritis and esophagitis. The patient was instructed regarding the importance of decreasing his alcohol intake. The patient is given information regarding a local detoxification center, the [facility] for assistance with detox. The patient will be discharged home with a prescription for ranitidine. The patient is resting comfortably and feels better, is alert and in no distress. The patient's results and examination findings were discussed with the patient. The repeat examination is unremarkable and benign. The history, exam, diagnostic testing, and current condition do not suggest any significant pathology to warrant further testing, continued ED treatment, admission, or surgical evaluation at this point. The vital signs have been stable. The patient does not have uncontrollable pain, intractable vomiting, or other significant symptoms. The patient's condition is stable and appropriate for discharge. The patient will pursue further outpatient evaluation with a primary care physician or other designated or consulting physician as indicated in the discharge instructions. The patient expressed understanding and was agreeable with this plan. Diagnosis Primary Impression: Alcoholic gastritis Qualified Codes: K29.20 - Alcoholic gastritis without bleeding Additional Impressions: Alcohol abuse Atypical chest pain Referrals: [facility] 2 days [facility] day Patient Instructions: Abuse of Alcohol (ED), Chest Pain (ED), Gastritis (ED), General Instructions Med/Other Pt SpecificInfo: Prescription(s) given Scripts Ranitidine (Ranitidine) 150 Mg Tab 150 MG PO BID for Heartburn Management, #60 TAB 0 Refills Prov: Magaly Cason MD 11/23/17 Disposition: 01 DISCHARGE HOME Condition: Stable Magaly Cason MD Nov 22, 2017 22:55
[2017-11-22] MEDS ORDERED: ONDANSETRON HCL 4 MG/2 ML VIAL IV ONE (23:00)
[2017-11-22 23:01] VITALS: BP 136/87; PULSE 89; RESP 18; TEMP 98.1; O2SAT 97
[2017-11-22 23:02] VITALS: RESP 18
[2017-11-22 23:20] LABS: AUTOMATED NEUTROPHIL # 2.6 TH/MM3 (1.8-7.7); BASOPHIL # 0.1 TH/MM3 (0-0.2); BASOPHIL % 1.4 % (0.0-2.0); EOSINOPHIL # 0.3 TH/MM3 (0-0.4); EOSINOPHIL % 4.7 % (0.0-4.0); HEMATOCRIT 40.8 % (39.0-51.0); HEMOGLOBIN 14.1 GM/DL (13.0-17.0); LYMPH % 39.9 % (9.0-44.0); LYMPHOCYTE # 2.3 TH/MM3 (1.0-4.8); MEAN CELL VOLUME 97.6 FL (80.0-100.0); MEAN CORPUSCULAR HEMOGLOBIN 33.7 PG (27.0-34.0); MEAN CORPUSCULAR HGB CONC 34.5 % (32.0-36.0); MEAN PLATELET VOLUME 7.3 FL (7.0-11.0); MONOCYTE # 0.6 TH/MM3 (0-0.9); PLATELET COUNT 188 TH/MM3 (150-450); RED BLOOD COUNT 4.18 MIL/MM3 (4.50-5.90); WHITE BLOOD COUNT 5.9 TH/MM3 (4.0-11.0)
[2017-11-22 23:25] LABS: BACTERIA, URINE RARE /hpf; BILIRUBIN, URINE NEG (NEG); BLOOD, URINE NEG (NEG); GLUCOSE,URINE NEG (NEG); KETONE, URINE NEG (NEG); NITRITE,URINE NEG (NEG); PH, URINE 5.5 (5.0-8.5); URINE COLOR LIGHT-YELLOW (YELLW/STRAW); URINE LEUKOCYTE ESTERASE NEG (NEG)
--- NOTE | 2017-11-22 23:30 | RADRPT ---
EXAM DATE/TIME: 11/22/2017 23:20 [facility] COMPARISON: CHEST SINGLE AP, November 08, 2017, 21:14. INDICATIONS : Short of breath, chest pain. MEDICAL HISTORY : Hypertension. SURGICAL HISTORY : None. ENCOUNTER: Initial ACUITY: 1 day PAIN SCORE: 4/10 LOCATION: Bilateral chest FINDINGS: A single view of the chest demonstrates the lungs to be symmetrically aerated without evidence of mas s, infiltrate or effusion. The cardiomediastinal contours are unremarkable. Osseous structures are intact. CONCLUSION: No evidence of acute cardiopulmonary disease. Juan Tolliver MD on November 22, 2017 at 23:28 Board Certified Radiologist. This report was verified electronically.
[2017-11-22 23:51] LABS: ALBUMIN 3.2 GM/DL (3.4-5.0); AST (GOT) 89 U/L (15-37); BICARBONATE 26.9 MEQ/L (21.0-32.0); BLOOD UREA NITROGEN 3 MG/DL (7-18); CHLORIDE 105 MEQ/L (98-107); GLOMERULAR FILTRATION RATE 145 ML/MIN (>89); GLUCOSE,RANDOM 85 MG/DL (74-106); MAGNESIUM 1.8 MG/DL (1.5-2.5); SODIUM (NA) 140 MEQ/L (136-145)
[2017-11-22 23:57] LABS: ALKALINE PHOSPHATASE 79 U/L (45-117); ALT (GPT) 42 U/L (12-78); TOTAL BILIRUBIN ADULT 0.2 MG/DL (0.2-1.0); TROPONIN I LESS THAN 0.02 NG/ML (0.02-0.05)
[2017-11-23] MEDS ORDERED: THIAMINE INJ 100 MG in SODIUM CHLORIDE 0.9% INJ 100 ML IV ONE ×2
[2017-11-23] MEDS ORDERED: IOHEXOL 350 MG/ML 10 ML VIAL (for RAD DIAG) IVCONTRAST ONE (00:21)
[2017-11-23] MEDS ORDERED: chlordiazePOXIDE 25 MG CAP PO PRN (01:00)
--- NOTE | 2017-11-23 01:03 | RADRPT ---
EXAM DATE/TIME: 11/23/2017 00:21 [facility] COMPARISON: CT ABDOMEN & PELVIS W CONTRAST, June 23, 2015, 10:58. INDICATIONS : Abdomen pain. IV CONTRAST: 100 cc Omnipaque 350 (iohexol) IV ORAL CONTRAST: No oral contrast ingested. RADIATION DOSE: 6.64 CTDIvol (mGy) MEDICAL HISTORY : Cardiovascular disease. Inflammatory bowel disease. Hypertension. SURGICAL HISTORY : None. ENCOUNTER: Initial ACUITY: 1 day PAIN SCALE: 5/10 LOCATION: Bilateral abdomen TECHNIQUE: Volumetric scanning of the abdomen and pelvis was performed. Using automated exposure control and ad justment of the mA and/or kV according to patient size, radiation dose was kept as low as reasonably achievable to obtain optimal diagnostic quality images. DICOM format image data is available electro nically for review and comparison. FINDINGS: LOWER LUNGS: Mild patchy atelectasis of both visualized lung bases. No pleural effusion. LIVER: Homogeneous mild fatty density without lesion. There is no dilation of the biliary tree. No calcifi ed gallstones. SPLEEN: Normal size without lesion. PANCREAS: Within normal limits. KIDNEYS: Normal in size and shape. A few scattered tiny cysts are noted. 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 There is no hydronephrosis. ADRENAL GLANDS: Within normal limits. VASCULAR: There is no aortic aneurysm. BOWEL/MESENTERY: The stomach, small bowel, and colon demonstrate no acute abnormality. There is no free intraperitone al air or fluid. ABDOMINAL WALL: Within normal limits. RETROPERITONEUM: There is no lymphadenopathy. BLADDER: No wall thickening or mass. REPRODUCTIVE: Within normal limits. INGUINAL: There is no lymphadenopathy or hernia. MUSCULOSKELETAL: No acute bony abnormality demonstrated. CONCLUSION: 1. No obstruction, inflammatory changes or other acute abnormalities demonstrated in the abdomen or p willian. 2. Mild fatty infiltration of the liver. 3. Cysts and/or tiny hypodensities of the kidneys unchanged. 4. Trace atelectasis of the visualized lung bases. Juan Tolliver MD on November 23, 2017 at 0:58 Board Certified Radiologist. This report was verified electronically.
[2017-11-23] MEDS ORDERED: RANI150T PO (01:43)
--- NOTE | 2017-11-23 15:19 | EKG ---
Date Performed: 11/22/2017 Time Performed: 22:47:29 PTAGE: 46 years EKG: Sinus rhythm NORMAL ECG INTERPRETATION BASED ON A DEFAULT AGE OF 40 YEARS Since the PREVIOUS TRACING , no significant change noted PREVIOUS TRACIN11/09/2017 07.37 DOCTOR: Giorgio Muller Interpretating Date/Time 11/23/2017 15:15:12
== END 2017-11-23 02:00 | disposition home or self-care (01) ==
LOC: NEPC 22:33
DX: K29.20 Alcoholic gastritis without bleeding (principal); F10.20 Alcohol dependence, uncomplicated; R07.89 Other chest pain; K76.0 Fatty (change of) liver, not elsewhere classified; I10 Essential (primary) hypertension; B19.20 Unspecified viral hepatitis C without hepatic coma; F32.9 Major depressive disorder, single episode, unspecified; F17.210 Nicotine dependence, cigarettes, uncomplicated; Z88.8 Allergy status to other drugs, medicaments and biological substances
CPT/HCPCS: 71045; 74177; 80053; 81001; 82550; 82552; 83690; 83735; 84484; 85025; 93005; 96361; 96365; 96375; 99285; J2405; J3411; J7040; Q9967

== ENCOUNTER 2017-11-28 22:34 | Emergency (ER) | payer SELFPAY ==
[~2017-11-28 22:34] MED LIST changes: -CHLO25CA9 PO; +RANI150T PO
[2017-11-28 23:00] VITALS: BP 128/85; PULSE 92; RESP 17; TEMP 97.6; O2SAT 98
[2017-11-29] MEDS ORDERED: PANTOPRAZOLE SODIUM 40 MG VIAL IV PUSH ONE (00:45)
[2017-11-29] MEDS ORDERED: SODIUM CHLOR 0.9% 1000 ML INJ 1,000 ML IV SCH (01:00)
--- NOTE | 2017-11-29 01:12 | PD ---
HPI Chief Complaint: Abdominal Pain Time Seen by Provider: 23:32 Travel History International Travel<30 days: No Contact w/Intl Traveler<30days: No Traveled to known affect area: No History of Present Illness HPI 46 years old male complains of abdominal pain with nausea vomiting and vomiting of blood. Patient states that he has history of recurrent abdominal pain with vomiting of blood in the past 2 months. Patient has history of alcohol abuse. Patient states the pain cramping pain mostly localized upper abdomen. Patient denies any pain radiation. Patient denies any fever chills. Patient has history of alcohol consumption daily. Patient denies history of DVT. Patient denies any dysuria frequency. Patient denies any back pain. Patient denies any history of hypertension, diabetes, hyperlipidemia. Patient has history of alcohol withdrawal seizure in the past, alcohol abuse, hepatitis and pancreatitis. PFSH Past Medical History Asthma: No Blood Disorders: No Anxiety: Yes Depression: Yes Heart Rhythm Problems: Yes (PALPITATIONS) Cancer: No Cardiovascular Problems: Yes (ORTHOSTATIC HYPOTENSION/HYPERTENSION) High Cholesterol: No Chemotherapy: No Chest Pain: Yes (CURRENTLY) Congestive Heart Failure: No COPD: No Diabetes: No Diminished Hearing: No Endocrine: No Gastrointestinal Disorders: Yes (IRRITABLE BOWEL) GERD: Yes Genitourinary: No Hypertension: Yes (Orthostatic vitals ) Immune Disorder: No Implanted Vascular Access Dvce: No Musculoskeletal: No Neurologic: Yes (TREMORS) Psychiatric: Yes Reproductive: No Respiratory: Yes (HAS HAD BRONCHITIS) Immunizations Current: Yes Radiation Therapy: No Seizures: Yes ("when I withdraw from alcohol") Sleep Apnea: No Thyroid Disease: No Past Surgical History Eye Surgery: Yes (right cataract) Other Surgery: Yes (CATARACT) Social History Alcohol Use: Yes (12 beers daily) Tobacco Use: Yes (2-3 packs of cigarettes per day) Substance Use: No Allergies-Medications (Allergen,Severity, Reaction): Coded Allergies: meperidine (Verified Allergy, Severe, VOMITING, 11/22/17) Reported Meds & Prescriptions Reported Meds & Active Scripts Active Ranitidine (Ranitidine HCl) 150 Mg Tab 150 Mg PO BID Review of Systems General / Constitutional: No: Fever Eyes: No: Visual changes HENT: No: Headaches Cardiovascular: No: Chest Pain or Discomfort Respiratory: No: Shortness of Breath Gastrointestinal: Positive: Nausea, Vomiting, Abdominal Pain, Hematemesis Genitourinary: No: Dysuria Musculoskeletal: No: Pain Skin: No Rash Neurologic: No: Weakness Psychiatric: No: Depression Endocrine: No: Polydipsia Hematologic/Lymphatic: No: Easy Bruising Physical Exam Narrative GENERAL: Well-nourished, well-developed patient. SKIN: Focused skin assessment warm/dry. HEAD: Normocephalic. EYES: No scleral icterus. No injection or drainage. NECK: Supple, trachea midline. No JVD or lymphadenopathy. CARDIOVASCULAR: Regular rate and rhythm without murmurs, gallops, or rubs. RESPIRATORY: Breath sounds equal bilaterally. No accessory muscle use. GASTROINTESTINAL: Abdomen soft, nondistended. Patient has mild to moderate tenderness in palpation epigastric area. No rebound tenderness. No mass. MUSCULOSKELETAL: No cyanosis, or edema. BACK: Nontender without obvious deformity. No CVA tenderness. Neurologic exam: Patient lethargic however answer questions appropriately. Patient moves all extremity well. No obvious focal neurologic deficit. Data Data Last Documented VS Vital Signs Date Time Temp Pulse Resp B/P (MAP) Pulse Ox O2 Delivery O2 Flow Rate FiO2 11/28/17 23:00 97.6 92 17 128/85 (99) 98 Orders Orders Complete Blood Count With Diff (11/29/17 00:42) Comprehensive Metabolic Panel (11/29/17 00:42) Prothrombin Time / Inr (Pt) (11/29/17 00:42) Act Partial Throm Time (Ptt) (11/29/17 00:42) Lipase (11/29/17 00:42) Iv Access Insert/Monitor (11/29/17 00:42) Ecg Monitoring (11/29/17 00:42) Oximetry (11/29/17 00:42) Alcohol (Ethanol) (11/29/17 00:42) Pantoprazole Inj (Protonix Inj) (11/29/17 00:45) Sodium Chlor 0.9% 1000 Ml Inj (Ns 1000 M (11/29/17 01:00) Labs Laboratory Tests Test 11/29/17 01:00 White Blood Count 4.5 TH/MM3 Red Blood Count 4.13 MIL/MM3 Hemoglobin 13.7 GM/DL Hematocrit 39.9 % Mean Corpuscular Volume 96.6 FL Mean Corpuscular Hemoglobin 33.2 PG Mean Corpuscular Hemoglobin Concent 34.4 % Red Cell Distribution Width 13.8 % Platelet Count 181 TH/MM3 Mean Platelet Volume 6.9 FL Neutrophils (%) (Auto) 34.3 % Lymphocytes (%) (Auto) 47.2 % Monocytes (%) (Auto) 9.5 % Eosinophils (%) (Auto) 8.8 % Basophils (%) (Auto) 0.2 % Neutrophils # (Auto) 1.5 TH/MM3 Lymphocytes # (Auto) 2.1 TH/MM3 Monocytes # (Auto) 0.4 TH/MM3 Eosinophils # (Auto) 0.4 TH/MM3 Basophils # (Auto) 0.0 TH/MM3 CBC Comment DIFF FINAL Differential Comment Prothrombin Time 10.0 SEC Prothromb Time International Ratio 1.0 RATIO Activated Partial Thromboplast Time 27.3 SEC Blood Urea Nitrogen 4 MG/DL Creatinine 0.60 MG/DL Random Glucose 85 MG/DL Total Protein 7.1 GM/DL Albumin 3.2 GM/DL Calcium Level 8.2 MG/DL Alkaline Phosphatase 76 U/L Aspartate Amino Transf (AST/SGOT) 85 U/L Alanine Aminotransferase (ALT/SGPT) 42 U/L Total Bilirubin 0.1 MG/DL Sodium Level 142 MEQ/L Potassium Level 4.1 MEQ/L Chloride Level 107 MEQ/L Carbon Dioxide Level 24.8 MEQ/L Anion Gap 10 MEQ/L Estimat Glomerular Filtration Rate 145 ML/MIN Lipase 266 U/L Ethyl Alcohol Level 273 MG/DL MDM Medical Decision Making Medical Screen Exam Complete: Yes Emergency Medical Condition: Yes Interpretation(s) 2:14 AM. CBC within normal limits. CMP within normal limits. AST 85. Alcohol 273. Differential Diagnosis Differential diagnoses including gastritis, PUD, pancreatitis, cholecystitis, colitis, UTI, pyelonephritis, nephrolithiasis, esophageal varices bleeding Narrative Course 46 years old male with abdominal pain, nausea vomiting, hematemesis. History of alcohol abuse. Normal saline solution 1 25 cc an hour. Protonix 40 mg IV. Zofran 4 mg IV. Diagnosis Primary Impression: Gastritis Qualified Codes: K29.00 - Acute gastritis without bleeding Additional Impression: Alcohol intoxication Qualified Codes: F10.920 - Alcohol use, unspecified with intoxication, uncomplicated Patient Instructions: General Instructions Additional Instructions: Advised [facility]. Protonix as directed. Follow-up with branding machine tender. Return if persistent vomiting or hematemesis. Med/Other Pt SpecificInfo: Prescription(s) given Scripts Pantoprazole (Protonix) 40 Mg Tab 40 MG PO DAILY for Reflux, #30 TAB 0 Refills Prov: Todd Green MD 11/29/17 Disposition: 01 DISCHARGE HOME Condition: Stable Todd Green MD Nov 29, 2017 01:12
[2017-11-29 01:17] LABS: AUTOMATED NEUTROPHIL # 1.5 TH/MM3 (1.8-7.7); BASOPHIL % 0.2 % (0.0-2.0); EOSINOPHIL # 0.4 TH/MM3 (0-0.4); EOSINOPHIL % 8.8 % (0.0-4.0); HEMATOCRIT 39.9 % (39.0-51.0); HEMOGLOBIN 13.7 GM/DL (13.0-17.0); LYMPH % 47.2 % (9.0-44.0); LYMPHOCYTE # 2.1 TH/MM3 (1.0-4.8); MEAN CELL VOLUME 96.6 FL (80.0-100.0); MEAN CORPUSCULAR HEMOGLOBIN 33.2 PG (27.0-34.0); MEAN CORPUSCULAR HGB CONC 34.4 % (32.0-36.0); MEAN PLATELET VOLUME 6.9 FL (7.0-11.0); MONO % 9.5 % (0.0-8.0); MONOCYTE # 0.4 TH/MM3 (0-0.9); NEUT % 34.3 % (16.0-70.0); PLATELET COUNT 181 TH/MM3 (150-450); RED BLOOD COUNT 4.13 MIL/MM3 (4.50-5.90); RED CELL DISTRIBUTION WIDTH 13.8 % (11.6-17.2); WHITE BLOOD COUNT 4.5 TH/MM3 (4.0-11.0)
[2017-11-29 01:30] LABS: ALBUMIN 3.2 GM/DL (3.4-5.0); ALT (GPT) 42 U/L (12-78); AST (GOT) 85 U/L (15-37); BICARBONATE 24.8 MEQ/L (21.0-32.0); BLOOD UREA NITROGEN 4 MG/DL (7-18); CALCIUM 8.2 MG/DL (8.5-10.1); CHLORIDE 107 MEQ/L (98-107); GLOMERULAR FILTRATION RATE 145 ML/MIN (>89); GLUCOSE,RANDOM 85 MG/DL (74-106); SODIUM (NA) 142 MEQ/L (136-145)
[2017-11-29 01:35] LABS: ALKALINE PHOSPHATASE 76 U/L (45-117); TOTAL BILIRUBIN ADULT 0.1 MG/DL (0.2-1.0); TOTAL PROTEIN 7.1 GM/DL (6.4-8.2)
[2017-11-29] MEDS ORDERED: PROT40TA PO (02:20)
== END 2017-11-29 06:20 | disposition home or self-care (01) ==
LOC: NEPE 22:34
DX: K29.00 Acute gastritis without bleeding (principal); F10.129 Alcohol abuse with intoxication, unspecified; K21.9 Gastro-esophageal reflux disease without esophagitis; K58.9 Irritable bowel syndrome, unspecified; I10 Essential (primary) hypertension; F32.9 Major depressive disorder, single episode, unspecified; F41.9 Anxiety disorder, unspecified; F17.210 Nicotine dependence, cigarettes, uncomplicated; Y90.8 Blood alcohol level of 240 mg/100 ml or more; Z79.899 Other long term (current) drug therapy
CPT/HCPCS: 80053; 80307; 83690; 85025; 85610; 85730; 96374; 99284; C9113; J7030

== ENCOUNTER 2017-12-01 04:43 | Emergency (ER) | payer SELFPAY ==
[~2017-12-01] VITALS: Ht 185.4 cm; Wt 65.9 kg
[~2017-12-01 04:43] MED LIST changes: +PROT40TA PO
[2017-12-01 04:46] VITALS: BP 134/94; PULSE 90; RESP 16; TEMP 98; O2SAT 98
[2017-12-01] MEDS ORDERED: SODIUM CHLOR 0.9% 1000 ML INJ 1,000 ML IV SCH (05:05)
[2017-12-01] MEDS ORDERED: PANTOPRAZOLE INJ 80 MG in SODIUM CHLORIDE 0.9% INJ 35 ML IV ONE (05:05)
[2017-12-01] MEDS ORDERED: PANTOPRAZOLE INJ 80 MG in SODIUM CHLORIDE 0.9% INJ 100 ML IV SCH (05:05)
--- NOTE | 2017-12-01 05:09 | PD ---
HPI Chief Complaint: Abdominal Pain Time Seen by Provider: 04:52 Travel History International Travel<30 days: No Contact w/Intl Traveler<30days: No Traveled to known affect area: No History of Present Illness HPI The patient is a 46 year old male who presents to the [facility] emergency department with a history of left upper quadrant abdominal pain that he reports is been coming and going for the last few months. The patient reports that the pain is an aching sensation. He reports that it is severe when it occurs. He reports that it has been associated with nausea and vomiting. He reports that he had nausea and vomiting 5 in the last 24 hours. He reports that there has been some blood streaks in the emesis. He reports that he is also had diarrhea 3 over the last 24 hours with bright red blood in his stool. The patient is an alcohol drinker on a daily basis. He usually drinks 3-4 4 packs of beer daily. Reports that he has been trying to get into an alcohol rehabilitation center. He reports that he tried multiple times at the [facility] , however they have no beds available. The patient reports feeling tremulous. He reports that his last alcoholic beverage was a few hours ago. He reports that he has had seizures related to withdrawal symptoms in the past. Otherwise on review of systems, he denies having any recent fevers, cough or congestion, neck pain, chest pain, shortness of breath, urinary symptoms, or neurologic symptoms. PFSH Past Medical History Asthma: No Blood Disorders: No Anxiety: Yes Depression: Yes Heart Rhythm Problems: Yes (PALPITATIONS) Cancer: No Cardiovascular Problems: Yes (ORTHOSTATIC HYPOTENSION/HYPERTENSION) High Cholesterol: No Chemotherapy: No Chest Pain: Yes (CURRENTLY) Congestive Heart Failure: No COPD: No Diabetes: No Diminished Hearing: No Endocrine: No Gastrointestinal Disorders: Yes (IRRITABLE BOWEL) GERD: Yes Genitourinary: No Hypertension: Yes (Orthostatic vitals ) Immune Disorder: No Implanted Vascular Access Dvce: No Musculoskeletal: No Neurologic: Yes (TREMORS) Psychiatric: Yes Reproductive: No Respiratory: Yes (HAS HAD BRONCHITIS) Immunizations Current: Yes Radiation Therapy: No Seizures: Yes ("when I withdraw from alcohol") Sleep Apnea: No Thyroid Disease: No Past Surgical History Eye Surgery: Yes (right cataract) Other Surgery: Yes (CATARACT) Social History Alcohol Use: Yes (12 beers daily) Tobacco Use: Yes (2-3 packs of cigarettes per day) Substance Use: No Allergies-Medications (Allergen,Severity, Reaction): Coded Allergies: meperidine (Verified Allergy, Severe, VOMITING, 12/01/17) Reported Meds & Prescriptions Reported Meds & Active Scripts Active Protonix (Pantoprazole Sodium) 40 Mg Tab 40 Mg PO DAILY Ranitidine (Ranitidine HCl) 150 Mg Tab 150 Mg PO BID Review of Systems Except as stated in HPI: all other systems reviewed are Neg General / Constitutional: No: Fever Eyes: No: Visual changes HENT: No: Headaches Cardiovascular: No: Chest Pain or Discomfort Respiratory: No: Shortness of Breath Gastrointestinal: Positive: Nausea, Vomiting, Diarrhea, Abdominal Pain, Hematemesis, Hematochezia, Changes in Bowel Habits, Indigestion, No: Loss of Appetite Genitourinary: No: Dysuria Musculoskeletal: No: Pain Skin: No Rash Neurologic: Positive: Tremor, No: Weakness, Focal Abnormalities, Change in Mentation, Slurred Speech, Sensory Disturbance Psychiatric: Positive: Substance Abuse, No: Depression, Suicidal Ideations Endocrine: No: Polydipsia Hematologic/Lymphatic: No: Easy Bruising Physical Exam Narrative General: The patient is a well-developed well-nourished male in no acute distress. Head and Neck exam: Head is normocephalic atraumatic. Eyes: EOMI, pupils are equal round and reactive to light. Nose: Midline septum with pink mucous membranes Mouth: Dentition unremarkable. Moist mucus membranes. Posterior oropharynx is not erythematous. No tonsillar hypertrophy. Uvula midline. Airway patent. Neck: No palpable lymphadenopathy. No nuchal rigidity. No thyromegaly. Cardiovascular: Regular rate and rhythm without murmurs, gallops, or rubs. No pulse deficit to the extremities on simultaneous auscultation and palpation of his radial artery. Lungs: Clear to auscultation bilaterally. No wheezes, rhonchi, or rales. Abdomen: Soft, with tenderness on palpation in the left upper quadrant of the abdomen. No other tenderness on palpation of the other quadrants of the abdomen. No guarding, rebound, or rigidity. Normal bowel sounds are audible. No tenderness on palpation of McBurney's point. Negative Temple sign. Extremities: No clubbing, cyanosis, or edema. 2+ pulses in all 4 extremities. Back: No spinous process tenderness to palpation. No costovertebral angle tenderness to palpation. Neurologic Exam: Cranial nerves 2-12 were intact on exam. Strength is 5/5 in all 4 extremities. No sensory deficits noted. No dysdiadochokinesis. Good finger to nose and Heel to olivier bilaterally. Skin Exam: No rash noted. Intact skin that is warm and dry. Data Data Last Documented VS Vital Signs Date Time Temp Pulse Resp B/P (MAP) Pulse Ox O2 Delivery O2 Flow Rate FiO2 12/01/17 04:46 98.0 90 16 134/94 (107) 98 Orders Orders Complete Blood Count With Diff (12/01/17 05:05) Comprehensive Metabolic Panel (12/01/17 05:05) Lipase (12/01/17 05:05) Prothrombin Time / Inr (Pt) (12/01/17 05:05) Act Partial Throm Time (Ptt) (12/01/17 05:05) Urinalysis - C+S If Indicated (12/01/17 05:05) Type And Screen (12/01/17 05:05) Chest, Single Ap (12/01/17 05:05) Ecg Monitoring (12/01/17 05:05) Iv Access Insert/Monitor (12/01/17 05:05) Oximetry (12/01/17 05:05) Sodium Chlor 0.9% 1000 Ml Inj (Ns 1000 M (12/01/17 05:05) Sodium Chloride 0.9% Flush (Ns Flush) (12/01/17 05:15) Sodium Chloride 0.9... W/Pantoprazole In (12/01/17 05:05) Sodium Chloride 0.9... W/Pantoprazole In (12/01/17 05:05) Lorazepam Inj (Ativan Inj) (12/01/17 05:15) Thiamine Inj (Thiamine Inj) (12/01/17 05:15) Labs Laboratory Tests Test 12/01/17 05:30 12/01/17 06:20 White Blood Count 5.7 TH/MM3 Red Blood Count 4.54 MIL/MM3 Hemoglobin 15.1 GM/DL Hematocrit 44.3 % Mean Corpuscular Volume 97.6 FL Mean Corpuscular Hemoglobin 33.3 PG Mean Corpuscular Hemoglobin Concent 34.2 % Red Cell Distribution Width 14.3 % Platelet Count 201 TH/MM3 Mean Platelet Volume 6.9 FL Neutrophils (%) (Auto) 54.9 % Lymphocytes (%) (Auto) 26.1 % Monocytes (%) (Auto) 9.1 % Eosinophils (%) (Auto) 8.5 % Basophils (%) (Auto) 1.4 % Neutrophils # (Auto) 3.1 TH/MM3 Lymphocytes # (Auto) 1.5 TH/MM3 Monocytes # (Auto) 0.5 TH/MM3 Eosinophils # (Auto) 0.5 TH/MM3 Basophils # (Auto) 0.1 TH/MM3 CBC Comment DIFF FINAL Differential Comment Prothrombin Time 9.7 SEC Prothromb Time International Ratio 1.0 RATIO Activated Partial Thromboplast Time 27.6 SEC Blood Urea Nitrogen 4 MG/DL Creatinine 0.71 MG/DL Random Glucose 78 MG/DL Total Protein 7.8 GM/DL Albumin 3.5 GM/DL Calcium Level 8.7 MG/DL Alkaline Phosphatase 81 U/L Aspartate Amino Transf (AST/SGOT) 90 U/L Alanine Aminotransferase (ALT/SGPT) 45 U/L Total Bilirubin 0.4 MG/DL Sodium Level 138 MEQ/L Potassium Level 3.9 MEQ/L Chloride Level 103 MEQ/L Carbon Dioxide Level 26.2 MEQ/L Anion Gap 9 MEQ/L Estimat Glomerular Filtration Rate 119 ML/MIN Lipase 233 U/L Urine Color LIGHT-YELLOW Urine Turbidity CLEAR Urine pH 6.5 Urine Specific [place] 1.002 Urine Protein NEG mg/dL Urine Glucose (UA) NEG mg/dL Urine Ketones NEG mg/dL Urine Occult Blood NEG Urine Nitrite NEG Urine Bilirubin NEG Urine Urobilinogen LESS THAN 2.0 MG/DL Urine Leukocyte Esterase NEG Urine RBC LESS THAN 1 /hpf Urine WBC LESS THAN 1 /hpf Microscopic Urinalysis Comment CULT NOT INDICATED MDM Medical Decision Making Medical Screen Exam Complete: Yes Emergency Medical Condition: Yes Medical Record Reviewed: Yes Interpretation(s) Last Impressions Chest X-Ray 12/01/17 0505 Signed Impressions: Service Date/Time: Friday, December 01, 2017 05:33 - CONCLUSION: No acute disease. No significant change has occurred. James Hinds MD Differential Diagnosis Gastritis, versus hemorrhagic esophagitis, versus Meg-[place] tear, versus peptic ulcer bleed, versus AVM malformation, versus malingering Narrative Course During the course of the patient's emergency department visit, the patient's history, examination, and differential diagnosis were reviewed with the patient. The patient was placed on a cardiac cath tech with oximetry and frequent blood pressure monitoring. The patient had IV access obtained and blood work sent for analysis. At 6:20 AM a call was placed out to the [facility] regarding this patient's request for an alcohol detoxification bed. Unfortunately, they currently have no beds available for detox. The patient was initially provided Protonix 80 mg IV followed by a Protonix drip , normal saline 125 mL/h was started. The patient was given Ativan 0.5 mg IV for tremulousness. The patient's laboratory studies were reviewed and remarkable for a white count of 5.7, hemoglobin 15.1, platelets 201 with monocytes 9.1, CMP is remarkable for BUN of 4, AST 90, lipase 233, PT 9.7, PTT 27.6, urinalysis is unremarkable. Radiology studies were reviewed and remarkable for a chest x-ray that shows no acute abnormality. No evidence of free air. A review the record reveals that the patient last had a CT scan of the abdomen and pelvis done at this facility on November 23. The patient's abdominal examination is benign, therefore repeat imaging is not indicated. The patient's vital signs are stable. The patient has no blood noted on Hemoccult testing. The patient has had no vomiting in the emergency department. The patient's hemoglobin did discuss this patient's case with the hospitalist on-call regarding possible admission, however the patient needs no admission criteria. The patient will therefore be discharged home to follow-up with the [facility] as previously recommended. The patient again will be given a prescription for an acid skilled laborer. The patient will be given a prescription for ranitidine. The patient is stable for discharge and follow-up with the meteorology teacher for additional testing as an outpatient to include endoscopy and colonoscopy. The patient is given the information regarding the meteorology teacher agronomy technician for follow-up. The patient is resting comfortably and feels better, is alert and in no distress. The patient's results and examination findings were discussed with the patient. The repeat examination is unremarkable and benign. The history, exam, diagnostic testing, and current condition do not suggest any significant pathology to warrant further testing, continued ED treatment, admission, or surgical evaluation at this point. The vital signs have been stable. The patient does not have uncontrollable pain, intractable vomiting, or other significant symptoms. The patient's condition is stable and appropriate for discharge. The patient will pursue further outpatient evaluation with a primary care physician or other designated or consulting physician as indicated in the discharge instructions. The patient expressed understanding and was agreeable with this plan. Diagnosis Primary Impression: Alcohol abuse Additional Impression: Abdominal pain Qualified Codes: R10.12 - Left upper quadrant pain Referrals: Paul Melara MD call for appointment [facility] 2 days [facility] 1 day Med/Other Pt SpecificInfo: Prescription(s) given Scripts Ondansetron Odt (Zofran Odt) 4 Mg Tab 4 MG SL Q6HR Y for Nausea/Vomiting, #7 TAB 0 Refills Prov: Magaly Cason MD 12/01/17 Ranitidine (Ranitidine) 150 Mg Tab 150 MG PO BID for Heartburn Management, #60 TAB 0 Refills Prov: Magaly Cason MD 12/01/17 Disposition: 01 DISCHARGE HOME Condition: Stable Magaly Cason MD Dec 01, 2017 05:09
[2017-12-01] MEDS ORDERED: SODIUM CHLORIDE 0.9% FLUSH 10 ML FLUSH IVF PRN (05:15)
[2017-12-01] MEDS ORDERED: THIAMINE INJ 100 MG in SODIUM CHLORIDE 0.9% INJ 100 ML IV ONE (05:15)
[2017-12-01] MEDS ORDERED: LORazepam 2 MG/ML VIAL IV PUSH ONE (05:15)
[2017-12-01 05:43] LABS: AUTOMATED NEUTROPHIL # 3.1 TH/MM3 (1.8-7.7); BASOPHIL # 0.1 TH/MM3 (0-0.2); BASOPHIL % 1.4 % (0.0-2.0); EOSINOPHIL # 0.5 TH/MM3 (0-0.4); EOSINOPHIL % 8.5 % (0.0-4.0); HEMATOCRIT 44.3 % (39.0-51.0); HEMOGLOBIN 15.1 GM/DL (13.0-17.0); LYMPH % 26.1 % (9.0-44.0); LYMPHOCYTE # 1.5 TH/MM3 (1.0-4.8); MEAN CELL VOLUME 97.6 FL (80.0-100.0); MEAN CORPUSCULAR HEMOGLOBIN 33.3 PG (27.0-34.0); MEAN CORPUSCULAR HGB CONC 34.2 % (32.0-36.0); MEAN PLATELET VOLUME 6.9 FL (7.0-11.0); MONO % 9.1 % (0.0-8.0); MONOCYTE # 0.5 TH/MM3 (0-0.9); NEUT % 54.9 % (16.0-70.0); PLATELET COUNT 201 TH/MM3 (150-450); RED BLOOD COUNT 4.54 MIL/MM3 (4.50-5.90); RED CELL DISTRIBUTION WIDTH 14.3 % (11.6-17.2); WHITE BLOOD COUNT 5.7 TH/MM3 (4.0-11.0)
[2017-12-01 05:57] LABS: PROTHROMBIN TIME - PATIENT 9.7 SEC (9.8-11.6)
[2017-12-01 05:58] LABS: ALT (GPT) 45 U/L (12-78)
[2017-12-01 06:01] LABS: ALKALINE PHOSPHATASE 81 U/L (45-117); TOTAL BILIRUBIN ADULT 0.4 MG/DL (0.2-1.0); TOTAL PROTEIN 7.8 GM/DL (6.4-8.2)
[2017-12-01 06:05] LABS: ALBUMIN 3.5 GM/DL (3.4-5.0); AST (GOT) 90 U/L (15-37); BICARBONATE 26.2 MEQ/L (21.0-32.0); BLOOD UREA NITROGEN 4 MG/DL (7-18); CALCIUM 8.7 MG/DL (8.5-10.1); CHLORIDE 103 MEQ/L (98-107); CREATININE 0.71 MG/DL (0.60-1.30); GLOMERULAR FILTRATION RATE 119 ML/MIN (>89); GLUCOSE,RANDOM 78 MG/DL (74-106); SODIUM (NA) 138 MEQ/L (136-145)
--- NOTE | 2017-12-01 06:06 | RADRPT ---
EXAM DATE/TIME: 12/01/2017 05:33 [facility] COMPARISON: CHEST SINGLE AP, November 22, 2017, 23:20. INDICATIONS : Short of breath. MEDICAL HISTORY : Hypertension. SURGICAL HISTORY : None. ENCOUNTER: Initial ACUITY: 1 day PAIN SCORE: 0/10 LOCATION: Bilateral chest FINDINGS: A single view of the chest demonstrates the lungs to be symmetrically aerated without evidence of mas s, infiltrate or effusion. The cardiomediastinal contours are unremarkable. Osseous structures are intact. CONCLUSION: No acute disease. No significant change has occurred. James Hinds MD on December 01, 2017 at 6:04 Board Certified Radiologist. This report was verified electronically.
[2017-12-01 06:53] LABS: BILIRUBIN, URINE NEG (NEG); BLOOD, URINE NEG (NEG); GLUCOSE,URINE NEG (NEG); KETONE, URINE NEG (NEG); NITRITE,URINE NEG (NEG); PH, URINE 6.5 (5.0-8.5); URINE COLOR LIGHT-YELLOW (YELLW/STRAW); URINE LEUKOCYTE ESTERASE NEG (NEG)
[2017-12-01] MEDS ORDERED: RANI150T PO (07:26)
[2017-12-01] MEDS ORDERED: ZOFR4TAB3 SL (07:26)
[2017-12-01 07:28] VITALS: BP 117/58; PULSE 94; RESP 14; O2SAT 97
[2017-12-07] MEDS ORDERED: RANI150T PO (00:08)
== END 2017-12-01 07:59 | disposition home or self-care (01) ==
LOC: NEPE 04:43
DX: F10.10 Alcohol abuse, uncomplicated (principal); R10.12 Left upper quadrant pain; R11.2 Nausea with vomiting, unspecified; R19.7 Diarrhea, unspecified; R25.1 Tremor, unspecified; I10 Essential (primary) hypertension; K21.9 Gastro-esophageal reflux disease without esophagitis; F17.200 Nicotine dependence, unspecified, uncomplicated; Z86.59 Personal history of other mental and behavioral disorders; Z86.79 Personal history of other diseases of the circulatory system; Z87.19 Personal history of other diseases of the digestive system; Z86.69 Personal history of other diseases of the nervous system and sense organs
CPT/HCPCS: 71045; 80053; 81001; 83690; 85025; 85610; 85730; 86850; 86900; 86901; 96365; 96368; 96375; 99284; C9113; J2060; J3411; J7030